=== PATIENT | female | born 1955 | race Caucasian/White ===

== ENCOUNTER 2016-11-10 05:57 | Emergency (ER) | payer BC ==
--- NOTE | ~2016-11-10 | EKG ---
PATIENT: SINAI MOY UNIT #: [id number] Ventricular Rate: 77 BPM Atrial Rate: 77 BPM P-R Interval: 204 ms QRS Duration: 90 ms Q-T Interval: 408 ms QTC Calculation(Bezet): 461 ms P [place]: 73 degrees Calculated R [place]: 56 degrees Calculated T [place]: 62 degrees Diagnosis Line: Normal sinus rhythm Diagnosis Line: Normal ECG Diagnosis Line: No previous ECGs available Diagnosis Line: Confirmed by HERIBERTO OG MD ([id number]) on 11/10/2016 Diagnosis Line: 10:49:52 PM INTERPRETING MD: EARLE NGUYEN
--- NOTE | ~2016-11-10 | CR72 ---
[facility] A Service of [facility] & [facility] RADIOLOGY TEXT RESULTS PATIENT: SINAI MOY LOCATION: [facility] : 59 UNIT #: [id number] AGE: [address]: Jonel Bonilla MD SEX: F ORDER DR: [id number] [facility] [address] [place], [place] [address] [id number] E MR#: [id number] Acc #: [id number] NAME: SINAI MOY : 1955 SEX: F STUDY DATE/TIME: 11/10/2016 5:54 UNIT: [facility] ROOM: STUDY DESCRIPTION: CR Chest Single View Portable Attending Physician: Jonel Bonilla M.D. Ordering Physician: Jermaine Dunaway M.D. Primary Care Physician: Benja Willis M.D. MEDICAL IMAGING REPORT This report is preliminary unless electronic signature is present EXAM Portable AP view of the chest COMPARISON 09/10/2016, 09/24/2014, 06/26/2015. INDICATION 61-year-old female with chest pain since 3:00 a.m. today. FINDINGS Cardiomediastinal silhouette is within normal limits. There is a calcified granuloma right lower lobe. No evidence of pneumothorax, pleural effusion, or acute airspace disease. IMPRESSION No acute radiographic abnormality. Dictated by... Fer Esquivel M.D. THIS IS AN ELECTRONICALLY VERIFIED REPORT Fer Esquivel M.D. at 11/12/2016 10:41 AM DEMARCO/hugo TD: 11/10/2016 09:50 JOB #: [id number] MEDICAL IMAGING REPORT Page 1 of 1 COPY
--- NOTE | ~2016-11-10 | US67 ---
[facility] A Service of [facility] & [facility] RADIOLOGY TEXT RESULTS PATIENT: SINAI MOY LOCATION: [facility] : 59 UNIT #: [id number] AGE: [address]: Jonel Bonilla MD SEX: F ORDER DR: [id number] [facility] [address] [place], [place] [address] [id number] E MR#: [id number] Acc #: [id number] NAME: SINAI MOY. : 1955 SEX: F STUDY DATE/TIME: 11/10/2016 8:35 UNIT: [facility] ROOM: STUDY DESCRIPTION: US Gallbladder Attending Physician: Jonel Bonilla M.D. Ordering Physician: Jermaine Dunaway M.D. Primary Care Physician: Benja Willis M.D. MEDICAL IMAGING REPORT This report is preliminary unless electronic signature is present EXAM Gallbladder ultrasound, 11/10/2016 HISTORY Severe right upper quadrant pain since 01:30 today. History of partial colectomy. Nausea for [address] abdomen and pelvis with contrast 05/14/2015. FINDINGS The pancreas is nearly completely obscured by bowel gas. The liver demonstrates a coarsened echotexture with diminished acoustic transmission suggesting features of hepatic steatosis. There is a rounded near isoechoic focus in the right hepatic lobe with thin hypoechoic halo. There is no acoustic shadowing. It does not appear hypervascular on color Doppler imaging. It is nonspecific. Portal vein appears patent. Intrahepatic IVC has an unremarkable marinelli-scale appearance. Right kidney measures 10.5 cm in length without focal cortical lesion, shadowing stone or hydronephrosis. The gallbladder is free of shadowing stone, sludge, wall thickening or pericholecystic fluid. The common bile duct caliber is normal, 2.0 mm. No intrahepatic biliary ductal dilation is seen. No ascites is seen. IMPRESSION 1. Approximately 1.3 cm isoechoic lesion with hypoechoic halo in the right hepatic lobe is nonspecific. Both benign and malignant etiologies remain in the differential. Dedicated CT abdomen without and with contrast, hepatic imaging protocol recommended for further evaluation, which can be performed on a non-emergent basis. 2. Features of hepatic steatosis. 3. The gallbladder has an unremarkable appearance. 4. The pancreas is completely obscured by bowel gas. [facility]. [facility] A Service of [facility] RADIOLOGY TEXT RESULTS PATIENT: SINAI MOY LOCATION: [facility] : 59 UNIT #: [id number] AGE: [address]: Jonel Bonilla MD SEX: F ORDER DR: 5. Correlation with the patient's prior CT abdomen from 05/14/2015 demonstrates a peripherally enhancing lesion in the right hepatic lobe which, according to history, was thought to represent a right hepatic lobe hemangioma on the 2013 examination. It is unclear to me whether today's ultrasound lesion corresponds to the CT findings from 2014 or 2012. Again, multiphase CT abdomen would be recommended for verification. Dictated by... Sofie Fish M.D. THIS IS AN ELECTRONICALLY VERIFIED REPORT Sofie Fish M.D. at 11/11/2016 8:33 AM Alycia TD: 11/10/2016 11:21 JOB #: [id number] MEDICAL IMAGING REPORT Page 1 of 1 COPY
[~2016-11-10 05:57] MED LIST: ALPRAZOLAM PO; ALPRAZOLAM0.25 MG PO; CITALOPRAM HBR40 MG PO; CRESTOR5 MG PO; ESTRACE1 MG PO; LIPITOR20 MG PO; LODINE400 M1 PO; LORTAB 5/500 TA1 TA1 PO; NEXIUM PO; PHENERGAN25 M1 PO; TRAMADOL HCL50 M2 PO
[2016-11-10 06:01] LABS: BASOPHIL% 0.8 % (0-2.5); DIFF IND NO; EOSINOPHIL# 0.1 X10e3 (0-0.7); EOSINOPHIL% 2.7 % (0.0-7.0); HEMATOCRIT 39.7 % (35.0-45.0); HEMOGLOBIN 13.2 gm/dL (12.0-16.0); LYMPHOCYTE# 2.5 X10e3 (1.0-3.5); LYMPHOCYTE% 47.9 % (17.0-45.0); MEAN CELL VOLUME 95.2 FL (83-96); MEAN CORPUSCULAR HEMOGLOBIN 31.7 PG (28-34); MEAN CORPUSCULAR HGB CONC 33.3 g/dL (30-36); MONOCYTE# 0.5 X10e3 (0-1.0); MONOCYTE% 8.8 % (3.0-12.0); NEUTROPHIL# 2.1 X10e3 (1.5-7.1); NEUTROPHIL% 39.8 % (40-75); PLATELET COUNT 269 X10e3 (140-420); RED BLOOD COUNT 4.17 X10e (3.90-5.30); WHITE BLOOD COUNT 5.3 X10e3 (4.0-10.5)
[2016-11-10 06:14] LABS: POC - CKMB <1.0 ng/mL (0.0-7.9); POC - TROPONIN <0.05 ng/mL (<=0.05)
[2016-11-10 06:26] LABS: ALBUMIN SERUM 3.9 g/dL (3.5-5.0); BILIRUBIN, DIRECT 0.1 mg/dL (0.0-0.2); BILIRUBIN,INDIRECT 0.5 mg/dL (0.0-0.9); BILIRUBIN,TOTAL 0.6 mg/dL (0.2-2.0); CALCIUM SERUM 9.5 mg/dL (8.4-10.2); CREATININE SERUM 0.5 mg/dL (0.6-1.4); POTASSIUM 3.9 mmol/L (3.5-5.1); PROTEIN TOTAL SERUM 7.1 g/dL (6.0-8.3)
[2016-11-10 07:48] LABS: POC - CKMB <1.0 ng/mL (0.0-7.9); POC - TROPONIN <0.05 ng/mL (<=0.05)
== END 2016-11-10 10:35 | disposition home or self-care (01) ==
LOC: CED 05:57
PROVIDERS: Emergency Medicine
DX: R10.13 Epigastric pain (principal); K21.9 Gastro-esophageal reflux disease without esophagitis; F41.9 Anxiety disorder, unspecified; F17.200 Nicotine dependence, unspecified, uncomplicated; Z90.710 Acquired absence of both cervix and uterus; Z98.890 Other specified postprocedural states; Z79.899 Other long term (current) drug therapy
CPT/HCPCS: 36415; 71010; 76705; 80048; 80076; 82553; 83690; 84484; 85025; 93005; 96374; 99284; J2270

== ENCOUNTER → 2016-12-25 | Outpatient (CLI) | payer BC ==
--- NOTE | ~2016-12-25 | TH ---
Unit #: [id number] #: [id number] Patient: SINAI MOY [id number] [address] [place], [place] [address] [id number] O MR#: [id number] NAME: SINAI MOY. : 1955 SEX: F STUDY DATE/TIME: 12/25/2016 UNIT: [facility] ROOM: STUDY DESCRIPTION: ECG and Imaging Study Attending Physician: Phillip Lea M.D. Referring Physician: Phillip Lea M.D. Primary Care Physician: Benja Willis M.D. CARDIOLOGY REPORT EXAM Stress nuclear and ECG combined INDICATION Chest heaviness, dyslipidemia. SUMMARY Patient exercised on a David protocol to maximal effort. During exercise patient did not experience any chest pain, and there was no chest pain at rest. The resting ECG was abnormal with flattened T-waves in aVL. With stress there were no diagnostic ST shifts, and no significant dysrhythmias, and no heart block. There was considerable baseline artifact, and only one PVC seen. There were lateral Q waves, which were not clinically significant. Patient completed seven minutes, one second of exercise. Heart rate increased from 78 to 146 (90%) and blood pressure increased 130/83 to 160/84. Technetium-99m Cardiolite, 11.42 and 33.2 mCi, was injected at rest and stress respectively. Appropriate views were obtained. FINDINGS Study is adequate. There is no significant patient motion noted during acquisition of the rest or stress images. There is no significant lung uptake, LV or RV enlargement. Summed stress score is 0. Gated perfusion wall motion analysis demonstrates normal wall motion throughout the myocardium with end-diastolic volume of 80 mL, ejection fraction 65%. Perfusion images demonstrate intestinal artifact at rest, much less with stress. There is more tissue attenuation artifact with stress, especially breast attenuation artifact, both there are no diagnostic perfusion changes. IMPRESSION 1. Abnormal rest ECG with nonischemic stress ECG. 2. Low normal exercise capacity based on the patient's age. 3. Normal heart rate and blood pressure responses. 4. Normal stress nuclear study with no evidence of ischemia or infarction. 5. Normal wall motion with excellent ejection fraction. Unit #: [id number] #: [id number] Patient: SINAI MOY by... Any Langley/vladimir TD: 12/25/2016 17:45 JOB #: [id number] CARDIOLOGY REPORT Page 1 of 1 X Shree Gavin MD CARDIOLOGY REPORT
== END | disposition home or self-care (01) ==
LOC: CNUC 07:08
DX: R07.9 Chest pain, unspecified (principal); R94.31 Abnormal electrocardiogram [ECG] [EKG]; E78.5 Hyperlipidemia, unspecified
CPT/HCPCS: 78452; 93005; 93017; 93306; A9500